=== PATIENT | female | born 1960 ===

== ENCOUNTER 2017-05-17 13:47 | Observation (INO) | payer BC, MEDICAID ==
--- NOTE | 2017-05-17 14:35 | ED PDOC ---
Arrival/HPI - General Chief Complaint: Back Pain Time Seen by Provider: 05/17/17 14:34 Historian: Patient - History of Present Illness Narrative History of Present Illness (Text): 05/17/17 14:34 This 57 yo female with pmh Lupus, HTN, DM, chronic multiple b/l kidney stones, presents to this ED c/o b/l flank pain since last night. Patient stated right flank pain has been improving, but left flank pain has gradually worsen. Patient noted hematuria today. Patient stated she has Lupus, and she has been passing kidney stones every 1-2 months for few years. Patient called [facility] David who told patient to come to ED. Patient denies urinary symptoms, sob, cp , vomiting, disarrhea, trauma, recent travel, sick contact, or abnormal gait. Time/Duration: Other (1 day) Quality: Aching Context: Home Past Medical History - Provider Review Nursing Documentation Reviewed: Yes - Cardiac Hx Cardiac Disorders: Yes Hx Hypertension: Yes - Pulmonary Hx Respiratory Disorders: No - Neurological Hx Neurological Disorder: No - HEENT Hx HEENT Disorder: No - Renal Hx Renal Disorder: Yes Hx Kidney Stones: Yes Hx Renal Failure: Yes - Endocrine/Metabolic Hx Endocrine Disorders: Yes Hx Diabetes Mellitus Type 2: Yes Hx Systemic Lupus Erythematosus: Yes - Hematological/Oncological Hx Blood Disorders: No - Integumentary Hx Dermatological Disorder: No - Musculoskeletal/Rheumatological Hx Musculoskeletal Disorders: No - Gastrointestinal Hx Gastrointestinal Disorders: No - Genitourinary/Gynecological Hx Genitourinary Disorders: No - Psychiatric Hx Psychophysiologic Disorder: Yes Hx Anxiety: Yes Hx Substance Use: No - Surgical History Hx Eye Surgery: Yes Family/Social History - Physician Review Nursing Documentation Reviewed: Yes Family/Social History: Other (non-contributory) Smoking Status: Light Smoker < 10 Cigarettes Daily Hx Alcohol Use: No Hx Substance Use: No Allergies/Home Meds Allergies/Adverse Reactions: Allergies Penicillins Allergy (Verified 05/17/17 14:11) ANAPHYLAXIS Home Medications: Home Meds Medication Instructions Recorded Confirmed Unobtainable 05/17/17 05/17/17 Review of Systems - Review of Systems Constitutional: Normal. absent: Fatigue, Weight Change, Fevers, Night Sweats Eyes: Normal ENT: Normal Respiratory: Normal. absent: SOB, Cough Cardiovascular: Normal. absent: Chest Pain, Palpitations Gastrointestinal: Nausea, Other (see hpi) Genitourinary Female: Hematuria. absent: Dysuria, Frequency, Urine Output Changes, Vaginal Bleeding, Vaginal Discharge Musculoskeletal: Normal. absent: Back Pain, Neck Pain Skin: Normal. absent: Rash Neurological: Normal. absent: Headache, Dizziness, Focal Weakness, Gait Changes , Speech Changes, Facial Droop, Disequilibrium, Seizure Endocrine: Normal Hemo/Lymphatic: Normal Psychiatric: Normal Physical Exam Vital Signs Temp Pulse Resp BP Pulse Ox 05/17/17 14:06 98.5 F 88 16 117/81 97 Temperature: Afebrile Blood Pressure: Normal Pulse: Regular Respiratory Rate: Normal Appearance: Positive for: Well-Appearing, Non-Toxic, Comfortable Pain Distress: Mild Mental Status: Positive for: Alert and Oriented X 3 - Systems Exam Head: Present: Atraumatic, Normocephalic Pupils: Present: PERRL Extroacular Muscles: Present: EOMI Conjunctiva: Present: Normal Mouth: Present: Moist Mucous Membranes Neck: Present: Normal Range of Motion Respiratory/Chest: Present: Clear to Auscultation, Good Air Exchange. No: Respiratory Distress, Accessory Muscle Use Cardiovascular: Present: Regular Rate and Rhythm, Normal S1, S2. No: Murmurs Abdomen: Present: Tenderness (left flank tenderness), Normal Bowel Sounds. No: Distention, Peritoneal Signs, Rebound, Guarding Back: Present: Normal Inspection, CVA Tenderness (Mild left CVAT). No: Midline Tenderness, Paraspinal Tenderness Upper Extremity: Present: Normal Inspection, Normal ROM, NORMAL PULSES. No: Cyanosis, Edema Lower Extremity: Present: Normal Inspection, NORMAL PULSES, Normal ROM. No: Edema, CALF TENDERNESS Neurological: Present: GCS=15, CN II-XII Intact, Speech Normal, Motor Func Grossly Intact, Normal Sensory Function, Normal Cerebellar Funct, Gait Normal Skin: Present: Warm, Dry, Normal Color. No: Rashes Psychiatric: Present: Alert, Oriented x 3, Normal Insight, Normal Concentration Medical Decision Making ED Course and Treatment: 05/17/17 18:[address] Farooq regarding patient c/o intractable abdominal pain with hematuria. Dr. Farooq agreed with plan for observation, and recommended Dr. Davalos, urologist for consult. Re-evaluation Time: 18:21 Reassessment Condition: Re-examined, Improving,but remains with symptoms - Lab Interpretations Lab Results: 05/17/17 15:30 05/17/17 15:30 Lab Results 05/17/17 17:39: Lipase 63 05/17/17 15:30: Sodium 142, Potassium 3.5 L, Chloride 103, Carbon Dioxide 30, Anion Gap 13, BUN 11, Creatinine 0.7, Est GFR ( Amer) > 60, Est GFR (Non- Af Amer) > 60, Random Glucose 95, Calcium 8.7, Total Bilirubin 0.2, AST 22, ALT 23, Alkaline Phosphatase 94, Total Protein 6.9, Albumin 4.0, Globulin 2.8, Albumin/Globulin Ratio 1.4 05/17/17 15:30: Urine Color Light yellow, Urine Appearance Sl cloudy, Urine pH 6.0, Ur Specific [place] 1.020, Urine Protein Trace H, Urine Glucose (UA) Negative, Urine Ketones Negative, Urine Blood Large H, Urine Nitrate Negative, Urine Bilirubin Negative, Urine Urobilinogen 0.2, Ur Leukocyte Esterase Trace H , Urine RBC 15 - 20, Urine WBC 1 - 3, Ur Epithelial Cells 4 - 5, Urine Bacteria Few 05/17/17 15:30: WBC 9.6, RBC 4.27, Hgb 13.2, Hct 40.1, MCV 93.9, MCH 30.9, MCHC 32.9, RDW 13.1, Plt Count 233, MPV 11.5 H, Gran % 80.1 H, Lymph % (Auto) 12.0 L , [place] % (Auto) 5.4, Eos % (Auto) 2.3, Baso % (Auto) 0.2, Gran # 7.69 H, Lymph # 1.2, [place] # 0.5, Eos # 0.2, Baso # 0.02 I have reviewed the lab results: Yes Interpretation: No clinic. lab abnormalty (pending urine culture) - RAD Interpretation Narrative RAD Interpretations (Text): 05/17/17 17:29 Accession No. : [id number] Patient Name / ID : LYNN CAMPOS / [id number] Exam Date : 05/17/2017 16:51:39 ( Approved ) Study Comment : Sex / Age : F / 57Y Creator : Jac Rodgers MD Dictator : Jac Rodgers MD [employer] Curer : Ore Crusher : Jac Rodgers MD Approver2 : Report Date : 05/17/2017 17:19:56 My Comment : PROCEDURE: CT Abdomen and Pelvis without intravenous contrast HISTORY: b/l flank pain pmh kidney stones/lupus COMPARISON: None. TECHNIQUE: Helical CT of the abdomen and pelvis was performed without oral or intravenous contrast as per referring physician request .. Contrast Dose: None Radiation dose: Total exam DLP = 622.69 mGy-cm. This CT exam was performed using one or more of the following dose reduction techniques: Automated exposure control, adjustment of the mA and/or kV according to patient size, and/or use of iterative reconstruction technique. FINDINGS: LOWER THORAX: Unremarkable. LIVER: Unremarkable. No gross lesion or ductal dilatation. GALLBLADDER AND BILE DUCTS: Prior cholecystectomy evident. 10 mm caliber common bile duct may be a function of prior cholecystectomy. No radiodense choledocholithiasis appreciated. PANCREAS: Unremarkable. No gross lesion or ductal dilatation. SPLEEN: Unremarkable. ADRENALS: Unremarkable. No mass. KIDNEYS AND URETERS: Multiple punctate intrarenal calculi identified the left greater than right kidney the left kidney appears somewhat atrophic measuring only 7.8 cm compared to 10.6 cm at the right. No obstructive uropathy or perinephric reaction bilaterally. VASCULATURE: Unremarkable. No aortic aneurysm. BOWEL: Unremarkable. No obstruction. No gross mural thickening. APPENDIX: Unremarkable. Normal appendix. PERITONEUM: Unremarkable. No free fluid. No free air. LYMPH NODES: Unremarkable. No enlarged lymph nodes. BLADDER: Urinary bladder is nearly completely decompressed with no associated radiodense urolithiasis. REPRODUCTIVE: Unremarkable. BONES: Advanced multilevel degenerate disease appreciate including marked disc height loss and vacuum disc changes not only at L4-5 and L5-S1 but also at T10-11 and T11-12. OTHER FINDINGS: None. IMPRESSION: 1. No obstructive uropathy is appreciate bilaterally although multifocal intrarenal calculi about the left greater the right kidney with tiny calculi identified. The urine bladder is decompressed and normal ink in appearance otherwise. The bilateral ureters normal in caliber as well. 2. Prior cholecystectomy with probable related dilatation of the intrahepatic biliary tree. 3. No colonic diverticular changes. Radiology Orders: 05/17/17 14:35 ABD & PELVIS W/O PO OR IV CONT [CT] Stat - Medication Orders Current Medication Orders: Discontinued Medications Sodium Chloride (Sodium Chloride 0.9%) 1,000 mls @ 999 mls/hr IV .Q1H1M STA Stop: 05/17/17 15:36 Last Admin: 05/17/17 15:17 Dose: 999 mls/hr eMAR Start Stop Document 05/17/17 15:17 [place] (Rec: 05/17/17 15:17 [id number] Intravenous Solution Start Date 05/17/17 Start Time 15:17 Ketorolac Tromethamine (Toradol) 15 mg IVP STAT STA Stop: 05/17/17 14:36 Last Admin: 05/17/17 15:17 Dose: 15 mg MAR Pain Assessment Document 05/17/17 15:17 [place] (Rec: 05/17/17 15:18 [id number] Pain Reassessment Is this a pain reassessment? No Sleep Is patient sleeping during reassessment? No Presence of Pain Presence of Pain Yes Pain Scale Used Pain Scale Used Numeric Location Left, Right or Bilateral Bilateral Pain Location Body Site Back Description Description Constant Intensity of Pain at present 10 Acceptable Level of Pain 2 Pain Behavior Irritability Facial Grimacing IVP Administration Document 05/17/17 15:17 [place] (Rec: 05/17/17 15:18 [id number]) Charges for Administration # of IVP Administrations 1 Morphine Sulfate (Morphine) 2 mg IVP STAT STA Stop: 05/17/17 17:18 Last Admin: 05/17/17 17:57 Dose: 2 mg MAR Pain Assessment Document 05/17/17 17:57 [place] (Rec: 05/17/17 17:58 [id number] Pain Reassessment Is this a pain reassessment? Yes Sleep Is patient sleeping during reassessment? No Presence of Pain Presence of Pain Yes Pain Scale Used Pain Scale Used Numeric Location Left, Right or Bilateral Bilateral Pain Location Body Site Back Description Description Constant Intensity of Pain at present 6 Acceptable Level of Pain 2 Radiation Location abdomen IVP Administration Document 05/17/17 17:57 [place] (Rec: 05/17/17 17:58 [id number]) Charges for Administration # of IVP Administrations 1 Ondansetron HCl (Zofran Inj) 4 mg IVP STAT STA Stop: 05/17/17 14:37 Last Admin: 05/17/17 15:18 Dose: 4 mg IVP Administration Document 05/17/17 15:18 [place] (Rec: 05/17/17 15:18 [id number]) Charges for Administration # of IVP Administrations 1 Ondansetron HCl (Zofran Inj) 4 mg IVP STAT STA Stop: 05/17/17 17:18 Last Admin: 05/17/17 17:57 Dose: 4 mg IVP Administration Document 05/17/17 17:57 [place] (Rec: 05/17/17 17:57 [id number]) Charges for Administration # of IVP Administrations 1 Disposition/Present on Arrival - Present on Arrival Any Indicators Present on Arrival: No History of DVT/PE: No History of Uncontrolled Diabetes: No Urinary Catheter: No History of Decub. Ulcer: No History Surgical Site Infection Following: None - Disposition Have Diagnosis and Disposition been Completed?: Yes Diagnosis: Intractable abdominal pain, Hematuria Disposition: HOSPITALIZED Disposition Time: 18:22 Patient Plan: Observation Condition: STABLE Referrals: Nii Farooq MD [Primary Care Provider] - Follow up with primary Forms: [employer] ([place])
[2017-05-17] MEDS ORDERED: Sodium Chloride 0.9% 1,000 ML IV STA ×2 (14:36→18:16)
[2017-05-17 15:54] LABS: BASO # 0.02 K/mm3 (0.0-2.0); BASO % 0.2 % (0.0-3.0); EOS # 0.2 (0.0-0.7); EOS % 2.3 % (1.5-5.0); GRAN # 7.69 (1.4-6.5); GRAN % 80.1 % (50.0-68.0); HEMATOCRIT 40.1 % (36.0-48.0); LYMPH # 1.2 (1.2-3.4); MEAN CELL VOLUME 93.9 fl (80.0-105.0); MEAN CORPUSCULAR HEMOGLOBIN 30.9 pg (25.0-35.0); MEAN CORPUSCULAR HGB CONC 32.9 g/dl (31.0-37.0); MEAN PLATELET VOLUME 11.5 fl (7.0-11.0); MONO # 0.5 (0.1-0.6); MONO % 5.4 % (1.0-6.0); RED CELL DISTRIBUTION WIDTH 13.1 % (11.5-14.5); WHITE BLOOD COUNT 9.6 10^3/ul (4.5-11.0)
[2017-05-17 15:58] LABS: URINE BILIRUBIN NEGATIVE (NEGATIVE); URINE BLOOD LARGE (NEGATIVE); URINE GLUCOSE (UA) NEGATIVE (NEGATIVE); URINE KETONE NEGATIVE (NEGATIVE); URINE LEUKOCYTE ESTERASE TRACE Leu/uL (NEGATIVE); URINE PROTEIN TRACE mg/dL (<30 mg/dL); URINE UROBILINOGEN 0.2 E.U./dL (<1 E.U./dL)
[2017-05-17 16:01] LABS: URINE APPEARANCE SL CLOUDY (CLEAR); URINE COLOR LIGHT YELLOW (YELLOW)
[2017-05-17 16:05] LABS: URINE BACTERIA FEW (NEG); URINE RBC 15 - 20 /hpf (0-2)
[2017-05-17 16:07] LABS: ALB/GLOB RATIO 1.4 (1.1-1.8); ALKALINE PHOSPHATASE 94 U/L (38-126); ALT/SGPT 23 U/L (7-56); AST/SGOT 22 U/L (14-36); BILIRUBIN,TOTAL 0.2 mg/dL (0.2-1.3); BLOOD UREA NITROGEN 11 mg/dL (7-21); CALCIUM 8.7 mg/dL (8.4-10.5); CARBON DIOXIDE 30 mmol/L (21-33); CHLORIDE 103 mmol/L (98-107); GFR AFRICAN-AMERICAN > 60; GLUCOSE,RANDOM 95 mg/dL (70-110); POTASSIUM 3.5 mmol/L (3.6-5.0); SODIUM 142 mmol/L (132-148); TOTAL PROTEIN 6.9 g/dL (5.8-8.3)
[2017-05-17] MEDS ORDERED: Iohexol 350 MG/100 ML VIAL ONE (16:40)
[2017-05-17] MEDS ORDERED: Morphine 2 mg/ml ISec IVP STA (17:17)
--- NOTE | 2017-05-17 17:21 | CT ---
PROCEDURE: CT Abdomen and Pelvis without intravenous contrast HISTORY: b/l flank pain pmh kidney stones/lupus COMPARISON: None. TECHNIQUE: Helical CT of the abdomen and pelvis was performed without oral or intravenous contrast as per referring physician request .. Contrast Dose: None Radiation dose: Total exam DLP = 622.69 mGy-cm. This CT exam was performed using one or more of the following dose reduction techniques: Automated exposure control, adjustment of the mA and/or kV according to patient size, and/or use of iterative reconstruction technique. FINDINGS: LOWER THORAX: Unremarkable. LIVER: Unremarkable. No gross lesion or ductal dilatation. GALLBLADDER AND BILE DUCTS: Prior cholecystectomy evident. 10 mm caliber common bile duct may be a function of prior cholecystectomy. No radiodense choledocholithiasis appreciated. PANCREAS: Unremarkable. No gross lesion or ductal dilatation. SPLEEN: Unremarkable. ADRENALS: Unremarkable. No mass. KIDNEYS AND URETERS: Multiple punctate intrarenal calculi identified the left greater than right kidney the left kidney appears somewhat atrophic measuring only 7.8 cm compared to 10.6 cm at the right. No obstructive uropathy or perinephric reaction bilaterally. VASCULATURE: Unremarkable. No aortic aneurysm. BOWEL: Unremarkable. No obstruction. No gross mural thickening. APPENDIX: Unremarkable. Normal appendix. PERITONEUM: Unremarkable. No free fluid. No free air. LYMPH NODES: Unremarkable. No enlarged lymph nodes. BLADDER: Urinary bladder is nearly completely decompressed with no associated radiodense urolithiasis. REPRODUCTIVE: Unremarkable. BONES: Advanced multilevel degenerate disease appreciate including marked disc height loss and vacuum disc changes not only at L4-5 and L5-S1 but also at T10-11 and T11-12. OTHER FINDINGS: None. IMPRESSION: 1. No obstructive uropathy is appreciate bilaterally although multifocal intrarenal calculi about the left greater the right kidney with tiny calculi identified. The urine bladder is decompressed and normal ink in appearance otherwise. The bilateral ureters normal in caliber as well. 2. Prior cholecystectomy with probable related dilatation of the intrahepatic biliary tree. 3. No colonic diverticular changes.
[2017-05-17] MEDS: Morphine 2 mg/ml ISec IVP PRN (20:24)
[2017-05-17] MEDS ORDERED: HYDROmorphone 0.5 mg/0.5 ml ISec IVP STA (22:07)
[2017-05-17 23:29] VITALS: RESP 20
[2017-05-18] MEDS: Morphine 2 mg/ml ISec IVP PRN ×2 (01:24→07:59)
[2017-05-18] MEDS ORDERED: Arformoterol 15 mcg/2 ml Inh Sol IH SCH (08:00)
[2017-05-18] MEDS ORDERED: Budesonide 0.25 mg/2 ml Inhal Susp UD IH SCH (08:00)
[2017-05-18] MEDS: Insulin Reg-LOW-Coverage SC SCH ×2 (08:17)
[2017-05-18 08:44] VITALS: BP 102/60; PULSE 72; TEMP 98.9; O2SAT 100
--- NOTE | 2017-05-18 10:08 | RAD ---
HISTORY: admission COMPARISON: No prior. FINDINGS: LUNGS: No active pulmonary disease. PLEURA: No significant pleural effusion identified, no pneumothorax apparent. CARDIOVASCULAR: Normal. OSSEOUS STRUCTURES: No significant abnormalities. VISUALIZED UPPER ABDOMEN: Normal. OTHER FINDINGS: None. IMPRESSION: No active disease.
--- NOTE | 2017-05-19 08:20 | CARD ---
APPROVED REPORT EKG Measurement Heart [id number] <Conclusion> Normal sinus rhythm Normal ECG
--- NOTE | 2017-05-20 11:04 | DS ---
HISTORY OF PRESENT ILLNESS: A 57-year-old female patient on 05/18/2017 called, she wants to go home,she cannot wait. The patient was discharged home to be followed with Dr. Davalos. He called back and he advised to follow up as an outpatient. The patient seems better. She is comfortable to go home and will be discharged home. PHYSICAL EXAMINATION: VITAL SIGNS: Her discharge vital signs, temperature 98.8, heart rate 72, blood pressure 102/60, respirations 20 and saturation 100%. GENERAL: According to the hospitalist, no change. DISCHARGE DIAGNOSES:. 1. Renal colic. 2. Microscopic hematuria. 3. Hypertension. 4. Chronic headache, chronic osteoarthritis and chronic back pain. Nii Farooq MD
--- NOTE | 2017-05-20 13:42 | HP ---
MAIN REASON: Abdominal pain and renal pain. HISTORY OF PRESENT ILLNESS: A 57-year-old female with history of kidney stones came into the emergency room with bilateral kidney pains. The patient has known history of kidney stones, multiple kidney stones. She was evaluated in the emergency room. She denied any vomiting. She does feel a little bit nausea, but no other complaints. The patient has a history of lupus. She takes also chronic medication for her back and she does have a history of kidney stones. Denies any fever, any chills, any burning urinations, and no other complaints. The patient denies any diarrhea, vomiting, or constipation. PAST MEDICAL HISTORY: The patient does have as in the present illness bilateral kidney stones, hypertension, depression, lupus, chronic back pain, disc disease, osteoarthritis, lupus arthritis. She has prior cholecystectomy. ALLERGIES: PENICILLIN AND ADVIL. FAMILY HISTORY: Noncontributory. SOCIAL HISTORY: Does not smoke or drink. She lives by herself. REVIEW OF SYSTEMS: As in the present illness. She always complains of back pain, kidney pain, and knee pain. She does complain of headache. She does have problem with one eye, decreased vision. PHYSICAL EXAMINATION: VITAL SIGNS: Temperature 98, heart rate 65, blood pressure 130/81, respirations 18, saturation 97%. HEAD AND NECK: Normal. No JVD. No thyromegaly. EYES: The does have right eye loss of vision. CHEST: Clear. Good air entry. CARDIAC: First sound and second sound normal. ABDOMEN: Tender in the renal area and also mild general tenderness of the abdomen. Bowel sounds intact. EXTREMITIES: No edema. NEUROLOGICALLY: Normal. LABORATORY DATA: White count 9.6, hemoglobin 16.2, hematocrit 40.1, platelet 233. Chemistry; sodium 142, potassium 4.5, chloride 106, bicarbonate 30, BUN 11, and creatinine 0.7. Liver function test is normal. Lipase is normal. The patient also had a CT, which shows bilateral kidney stones. No colonic diverticula. The patient had intrarenal calculi on the left greater than right. The left kidney appears somewhat atrophic measuring only 7.8 cm and the right one is 10.6 cm. No obstructing uropathy or perinephric reaction bilaterally. Also the patient noted she has prior cholecystectomy. IMPRESSION AND PLAN: 1. Renal colic. The patient had a UA with microscopic hematuria. We will admit the patient for IV fluids, morphine sulfate, IV p.r.n., urology consult Dr. Ge Davalos. The patient had also in the hospital EKG, which was normal and she had a chest x-ray on admission also, which was reported negative for any lung disease. 2. Hypertension. Chronic tension headaches, chronic anxiety. We will keep the patient for observation and the current medications and we will proceed as per recommendation of the urologist. Nii Farooq MD
== END 2017-05-18 13:47 | disposition home or self-care (01) ==
LOC: ED 13:47 → ERH 18:14 → 3RSO 20:45
PROVIDERS: ADMIT Internal Medicine; ATTEND Internal Medicine
DX: N23 Unspecified renal colic (principal); R31.29 Other microscopic hematuria; M32.9 Systemic lupus erythematosus, unspecified; I10 Essential (primary) hypertension; M19.90 Unspecified osteoarthritis, unspecified site; G89.29 Other chronic pain; R51 Headache; R10.9 Unspecified abdominal pain; Z88.0 Allergy status to penicillin
CPT/HCPCS: 71010; 74176; 80053; 81001; 82948; 83690; 85025; 87086; 93005; 94640; 96374; 99285; G0378; J1170; J1885; J2270; J2405; J7040

== ENCOUNTER 2017-10-04 00:39 | Emergency (ER) | payer BC, MEDICAID ==
[2017-10-04 01:56] VITALS: TEMP 98.1
--- NOTE | 2017-10-04 02:05 | ED PDOC ---
Arrival/HPI - General Chief Complaint: Medical Clearance Time Seen by Provider: 10/04/17 01:47 Historian: Patient - History of Present Illness Narrative History of Present Illness (Text): 10/04/17 02:02 A 57 year old female, whose past medical history includes Lupus, HTN, DM, chronic multiple b/l kidney stones, presents to the emergency department complaining of a spider bite. The patient states that this evening she was bitten behind her left ear. The patient denies fevers, chills, headache, dizziness, chest pain, shortness of breath, dyspnea on exertion, cough, abdominal pain, nausea, vomiting, diarrhea, back pain, neck pain, urinary/bowel changes, or any other complaint. PMD: Dr. Farooq Time/Duration: Prior to Arrival Symptom Onset: Sudden Symptom Course: Unchanged Activities at Onset: Rest, Light Context: Home Past Medical History - Provider Review Nursing Documentation Reviewed: Yes - Reproductive Menopause: Yes - Cardiac Hx Hypertension: Yes - Pulmonary Hx Respiratory Disorders: No - Neurological Hx Neurological Disorder: No - HEENT Hx Blind: Yes (L eye) - Renal Hx Kidney Stones: Yes - Endocrine/Metabolic Hx Diabetes Mellitus Type 2: Yes Hx Systemic Lupus Erythematosus: Yes - Hematological/Oncological Hx Blood Disorders: No - Integumentary Hx Dermatological Disorder: No - Musculoskeletal/Rheumatological Hx Falls: No - Gastrointestinal Hx Gastrointestinal Disorders: No - Genitourinary/Gynecological Hx Hematuria: Yes Other/Comment: laser left kidney - Psychiatric Hx Anxiety: Yes Hx Substance Use: No - Surgical History Hx Cholecystectomy: Yes Other/Comment: left cornea transplant Family/Social History - Physician Review Nursing Documentation Reviewed: Yes Family/Social History: No Known Family HX Smoking Status: Light Smoker < 10 Cigarettes Daily Hx Alcohol Use: No Hx Substance Use: No Allergies/Home Meds Allergies/Adverse Reactions: Allergies Penicillins Allergy (Verified 10/04/17 01:57) SWELLING Review of Systems - Physician Review All systems were reviewed & negative as marked: Yes - Review of Systems Constitutional: absent: Fevers, Night Sweats ENT: Other (Spider bite behind ear.) Respiratory: absent: SOB, Cough Cardiovascular: absent: Chest Pain Gastrointestinal: absent: Abdominal Pain, Constipation, Diarrhea, Nausea, Vomiting Genitourinary Female: absent: Urine Output Changes Musculoskeletal: absent: Back Pain, Neck Pain Neurological: absent: Headache, Dizziness Physical Exam Vital Signs Reviewed: Yes Vital Signs Temp Pulse Resp BP Pulse Ox 10/04/17 02:40 87 18 120/74 98 10/04/17 01:48 98.1 F 103 H 20 118/78 97 Temperature: Afebrile Blood Pressure: Normal Pulse: Tachycardic Respiratory Rate: Normal Appearance: Positive for: Well-Appearing, Non-Toxic, Comfortable Pain Distress: None Mental Status: Positive for: Alert and Oriented X 3 - Systems Exam Head: Present: Atraumatic, Normocephalic Pupils: Present: PERRL Extroacular Muscles: Present: EOMI Conjunctiva: Present: Normal Ears: Present: Other (Red marking behind patient's left ear.) Mouth: Present: Moist Mucous Membranes Neck: Present: Normal Range of Motion Respiratory/Chest: Present: Clear to Auscultation, Good Air Exchange. No: Respiratory Distress, Accessory Muscle Use Cardiovascular: Present: Regular Rate and Rhythm, Normal S1, S2. No: Murmurs Abdomen: Present: Normal Bowel Sounds. No: Tenderness, Distention, Peritoneal Signs Back: Present: Normal Inspection Upper Extremity: Present: Normal Inspection. No: Cyanosis, Edema Lower Extremity: Present: Normal Inspection. No: Edema Neurological: Present: GCS=15, CN II-XII Intact, Speech Normal Skin: Present: Warm, Dry, Normal Color. No: Rashes Psychiatric: Present: Alert, Oriented x 3, Normal Insight, Normal Concentration Medical Decision Making ED Course and Treatment: 10/04/17 02:06 Impression: A 57 year old female presents to the emergency department complaining of a spider bite behind her left ear. Plan: -- Reassess and disposition Progress Notes: - Medication Orders Current Medication Orders: Discontinued Medications Acetaminophen (Tylenol 325mg Tab) 650 mg PO STAT STA Stop: 10/04/17 02:33 Last Admin: 10/04/17 02:36 Dose: 650 mg MAR Pain/Vitals Document 10/04/17 02:36 JOL (Rec: 10/04/17 02:36 JOL [id number]) Pain Reassessment Is This A Pain ReAssessment? No Sleep Is patient sleeping during reassessment? No Presence of Pain Presence of Pain Yes Location Pain Location Body Site Generalized Intensity 4 Scale Used Numeric Trimethoprim/Sulfamethoxazole (Bactrim Ds Tab) 1 tab PO ONCE ONE PRN Reason: Protocol Stop: 10/04/17 02:08 Last Admin: 10/04/17 02:28 Dose: 1 tab - Scribe Statement The provider has reviewed the documentation as recorded by the Jacque Lee Provider Jacque Attestation: All medical record entries made by the Scribe were at my direction and personally dictated by me. I have reviewed the chart and agree that the record accurately reflects my personal performance of the history, physical exam, medical decision making, and the department course for this patient. I have also personally directed, reviewed, and agree with the discharge instructions and disposition. Disposition/Present on Arrival - Present on Arrival Any Indicators Present on Arrival: No History of DVT/PE: No History of Uncontrolled Diabetes: No Urinary Catheter: No History of Decub. Ulcer: No History Surgical Site Infection Following: None - Disposition Have Diagnosis and Disposition been Completed?: Yes Diagnosis: Spider bite Disposition: HOME/ ROUTINE Disposition Time: 02:45 Condition: GOOD Discharge Instructions (ExitCare): Spider Bites Prescriptions: Sulfamethoxazole/Trimethoprim [Bactrim DS 800 mg-160 mg] 1 tab PO BID #14 tab Forms: [employer] ([place]ian)
[2017-10-04] MEDS ORDERED: Tmp-Smz 800 mg-160 mg DS Tab PO ONE (02:07)
[2017-10-04 06:05] VITALS: BP 120/74; PULSE 87; RESP 18; O2SAT 98
== END 2017-10-04 02:45 | disposition home or self-care (01) ==
LOC: ED 00:39
DX: T63.301A Toxic effect of unspecified spider venom, accidental (unintentional), initial encounter (principal); I10 Essential (primary) hypertension; E11.9 Type 2 diabetes mellitus without complications; M32.9 Systemic lupus erythematosus, unspecified